=== PATIENT | female | born 1955 | race Caucasian/White ===

== ENCOUNTER 2016-03-29 10:57 | Day surgery (SDC) | payer MEDICARE ==
[~2016-03-29 10:57] MED LIST: Buffered Lidocaine 1% SYR 3ML* 3 ML/SYR SYRINGE INTRADERM ONE; DiMENhydriNATE IV* 50 MG/ML VIAL IV PUSH ONE; Scopolamine 1.5 mg* PATCH TRANSDERM ONE; Sodium Citrate/Citric Acid* 15 ML UDC PO ONE
[2016-03-29] MEDS ORDERED: Buffered Lidocaine 1% SYR 3ML* 3 ML/SYR SYRINGE ONE (11:19)
[2016-03-29] MEDS ORDERED: Sodium Citrate/Citric Acid* 15 ML UDC ONE (11:19)
[2016-03-29] MEDS ORDERED: Scopolamine 1.5 mg* PATCH ONE (11:19)
[2016-03-29] MEDS ORDERED: Oxymetazoline 0.05% NASAL SPR* 15 ML BTL ONE ×3 (12:11→13:58)
[2016-03-29] MEDS ORDERED: DiMENhydriNATE IV* 50 MG/ML VIAL ONE ×2 (12:11→15:34)
[2016-03-29] MEDS ORDERED: Lidocaine 4% TOPICAL* 50 ML TOP.SOLN ONE (12:11)
[2016-03-29] MEDS ORDERED: Bacitracin OINTMENT* 0.5% 0.5 oz TUBE ONE (12:11)
[2016-03-29] MEDS ORDERED: Lidocain 1% EPI 1:100,000 * 30 ML MDV ONE (12:11)
[2016-03-29] MEDS ORDERED: fentaNYL* 50 MCG/ML 2 ML VIAL (100 MCG VIAL) ONE ×2 (13:08→15:09)
[2016-03-29] MEDS ORDERED: Dexamethasone IV* 4 MG/ML 1 ML (4 MG) ONE (13:09)
[2016-03-29] MEDS ORDERED: Lidocaine 2% PF * 5 ML VIAL ONE (13:09)
[2016-03-29] MEDS ORDERED: Propofol* 10 MG/ML 20 ML BTL IV PUSH ONE (13:09)
[2016-03-29] MEDS ORDERED: HYDROcodone/ACETAMIN 5-325 MG* 1 TAB PO PRN (13:35)
[2016-03-29] MEDS ORDERED: DiMENhydriNATE IV* 50 MG/ML VIAL IV PUSH PRN (13:35)
[2016-03-29] MEDS ORDERED: Ondansetron INJ* 2 MG/ML VIAL ONE (14:23)
[2016-03-29] MEDS: fentaNYL* 50 MCG/ML 2 ML VIAL (100 MCG VIAL) IV PRN ×2 (15:12→15:23)
[2016-03-29] MEDS ORDERED: oxyCODONE ORAL.SOLN* 5 MG/5 ML UDC ONE (15:35)
[2016-03-29 16:58] VITALS: BP 136/69
--- NOTE | 2016-03-30 04:22 | OP ---
DATE OF OPERATION: 03/29/16 - [facility] DATE OF : 59 SURGEON: Dave Bernal MD SENIOR OPERATIONS MANAGER: None. ANESTHESIOLOGIST: Marky Galdamez MD ANESTHESIA: General. PRE-OP DIAGNOSIS: Chronic maxillary sinusitis on the left. POST-OP DIAGNOSIS: Chronic maxillary sinusitis on the left. OPERATIVE PROCEDURE: Left maxillary antrostomy. INDICATION: This is a 60-year-old woman who has had chronic left maxillary sinusitis for several months. The patient's infection has been refractory to treatment with oral antibiotics. The decision was made following confirmation on CT scan to take the patient to operating room for left maxillary antrostomy. EBL: Approximately 50 cc. SPECIMEN: Left sinus contents and culture. DESCRIPTION OF PROCEDURE: On 03/29/16, the patient was brought to the operating room, general anesthesia was induced and an LMA was placed. The patient was draped and a time-out was performed. She had been given Afrin nasal spray in the preoperative holding area. Additional pledgets soaked in Afrin and 4% lidocaine were packed into the left nasal cavity. 1% lidocaine with epinephrine was infiltrated into the left middle turbinate, left lateral nasal wall, left side of the septum and left inferior turbinate. There was a tremendous amount of mucosal inflammation and edema with really only the inferior portion of the middle turbinate visible. Additional time was allowed to for vasoconstriction, the procedure was begun. The middle turbinate was medialized. The inferior portion of the uncinate process was resected with a combination of back biter and microdebrider. The maxillary antrum was entered and copious purulent secretions were encountered. Cultures were obtained. The microdebrider as well as a back biter and straight through cutter were used to enlarge the maxillary antrostomy. The maxillary sinus was then copiously irrigated with saline. A Saad Merocel pack was placed into the middle meatus to prevent lateralization of the middle turbinate and to assist with hemostasis. A drip pattern was then applied. The patient was returned to care of the anesthesiologist, extubated and delivered to the PACU in stable condition. [id number]/CPS #: [id number] MTDD
== END 2016-03-29 17:32 | disposition home or self-care (01) ==
LOC: OR 10:57
PROVIDERS: ATTEND Otolaryngology
DX: J32.0 Chronic maxillary sinusitis (principal)
CPT/HCPCS: 36415; 86803; 87070; 87073; 87076; 87077; 87185; 87186; 87205; 88305; A9270-GY; J1100; J1240; J2405; J2704; J3010

== ENCOUNTER 2016-05-17 16:56 | Emergency (ER) | payer MEDICARE ==
--- NOTE | 2016-05-17 19:11 | RAD ---
Indication: Right ankle swelling. 3 views of the right ankle demonstrates no fracture. Soft tissue swelling is noted laterally. Ankle mortise is intact. IMPRESSION: Soft tissue swelling laterally without evidence of fracture.
[2016-05-17 19:23] VITALS: BP 128/81
[2016-05-17] MEDS ORDERED: Ibuprofen TAB* 600 MG PO ONE (19:25)
--- NOTE | 2016-05-17 19:29 | UC ---
Lower Extremity/Ankle HPI - HPI Summary HPI Summary: Patient tripped over a rug, landing on the outside of her ankle. she can bear weigh, although painful. bruising and swelling noted. - History of Current Complaint Chief Complaint: UCLowerExtremity Stated Complaint: RT ANKLE INJURY Time Seen by Provider: 05/17/16 18:42 Hx Obtained From: Patient Hx Last Menstrual Period: n/a ?: No Onset/Duration: Sudden Onset, Lasting Days Severity Initially: Moderate Severity Currently: Moderate Aggravating Factor(s): Standing, Ambulation Alleviating Factor(s): Ice Able to Bear Weight: Yes - Allergies/Home Medications Allergies/Adverse Reactions: Allergies Allergy/AdvReac Type Severity Reaction Status Date / Time Cefuroxime [From Ceftin] Allergy Itching Verified 05/17/16 19:05 Codeine Allergy Itching Verified 05/17/16 19:05 Sulfa Drugs Allergy SEVERE Verified 05/17/16 19:05 HIVE ALL OVER BODY Sulfamethoxazole Allergy SEVERE Verified 05/17/16 19:05 w/Trimethoprim HIVES ALL [From Bactrim] OVER BODY ENVIRONMENTAL/SEASONAL Allergy CONGESTION, Uncoded 05/17/16 19:05 HAYFEVER RUNNY NOSE NICOTINE PATCH Allergy RED ITCHY Uncoded 05/17/16 19:05 SITE YEAST/VINEGAR Allergy Bilateral Uncoded 05/17/16 19:05 ankle swelling/face, hand swelling, PMH/Surg Hx/FS Hx/Imm Hx Previously Healthy: Yes Endocrine History Of: Denies: Diabetes Cardiovascular History Of: Reports: Hypertension - CONTROL WITH MED Denies: Pacemaker/ICD Respiratory History Of: Reports: Asthma - HISTORY OF-NO PROBLEMS NOW, Bronchitis - HISTORY OF GI/ History Of: Denies: Renal Disease Psychological History Of: Reports: Anxiety, Depression - CONTROL WITH MEDS - Surgical History Surgical History: Yes Surgery Procedure, Year, and Place: 1962 TONSILLECTOMY. 1998 LEFT THUMB SURGERY , [place]. 2006 C5-C6 LAMINECTOMY AND FUSION, [facility]. 2006 SPLEENECTOMY, [facility] 2006 INTUBATION FROM LEFT LUNG COLLAPSE, [facility]. 2010 LEFT FOOT SPLIT BONE, [facility]. 1995 BILATERAL TUBAL LIGATION, [facility]. 2012 EXCISION OF BCC BILATERAL SIDES OF NOSE, [place]. 2012 RECONSTRUCTION MOHS SURGICAL DEFECT NOSE WITH LOCAL FLAPS, [facility] [place]. 2012 - Family History Known Family History: Positive: Respiratory Disease - Social History Alcohol Use: Rare Substance Use Type: None Smoking Status (MU): Former Smoker Type: Cigarettes Amount Used/How Often: 2 PPD FOR ABOUT 35 YEARS Length of Time of Smoking/Using Tobacco: 35 YEARS Have You Smoked in the Last Year: No When Did the Patient Quit Smoking/Using Tobacco: 2008 Review of Systems Constitutional: Negative Skin: Bruising Eyes: Negative ENT: Negative Respiratory: Negative Cardiovascular: Negative Gastrointestinal: Negative Genitourinary: Negative Motor: Negative Neurovascular: Negative Musculoskeletal: Arthralgia, Decreased ROM, Edema, Myalgia Neurological: Negative Psychological: Negative All Other Systems Reviewed And Are Negative: Yes Physical Exam Triage Information Reviewed: Yes Appearance: Well-Appearing, Well-Nourished, Pain Distress Vital Signs: Initial Vital Signs Temp 99.6 F 05/17/16 18:49 Pulse 108 05/17/16 18:49 Resp 14 05/17/16 18:49 BP 128/81 05/17/16 18:49 Pulse Ox 97 05/17/16 18:49 Vital Signs Reviewed: Yes Eye Exam: Normal Eyes: Positive: Conjunctiva Clear ENT Exam: Normal ENT: Positive: Normal ENT inspection, Hearing grossly normal, Pharynx normal, TMs normal Dental Exam: Normal Neck exam: Normal Neck: Positive: Supple, Nontender, No Lymphadenopathy Respiratory Exam: Normal Respiratory: Positive: Chest non-tender, Lungs clear, Normal breath sounds Cardiovascular Exam: Normal Cardiovascular: Positive: RRR, No Murmur, Pulses Normal Abdominal Exam: Normal Abdomen Description: Positive: Nontender, No Organomegaly, Soft Bowel Sounds: Positive: Present Musculoskeletal: Positive: Strength Limited @, ROM Limited @ - in pronation and dorsi flexion, Edema @ - lateral aspect and doraum of foot Neurological Exam: Normal Psychological Exam: Normal Skin Exam: Normal Lower Extremity Course/Dx - Course Course Of Treatment: hx obtained, exam performed, meds reviewed, xray obtained no evidence of fracture, ice applied, iburprofen given for pain. gel spint applied. - Differential Dx/Diagnosis Differential Diagnosis/HQI/PQRI: Cellulitis, Contusion, Dislocation, Fracture ( Closed), Sprain, Strain Provider Diagnoses: right ankle sprain. ecchymosis Discharge - Discharge Plan Condition: Stable Disposition: HOME Patient Education Materials: Ankle Sprain (ED) Additional Instructions: rest ice compress and elevate. continue to ice for the next two days. keep the verena wrap on to reduce swelling and elevate at rest. weight bear and do activity as tolerated.
== END 2016-05-17 20:06 | disposition home or self-care (01) ==
LOC: UCCORT 16:56
DX: S93.401A Sprain of unspecified ligament of right ankle, initial encounter (principal); S90.01XA Contusion of right ankle, initial encounter; W22.8XXA Striking against or struck by other objects, initial encounter; Y93.9 Activity, unspecified; Y92.9 Unspecified place or not applicable; Z88.1 Allergy status to other antibiotic agents; Z88.5 Allergy status to narcotic agent; Z88.2 Allergy status to sulfonamides; I10 Essential (primary) hypertension; Z87.891 Personal history of nicotine dependence
CPT/HCPCS: 99213; A9270-GY; G0463

== ENCOUNTER 2022-02-04 13:33 | Inpatient (IN) ==
[2022-02-04] MEDS ORDERED: Naloxone 0.4 mg VIAL 0.4 mg/ml 1 ml VIAL ONE (13:37)
[2022-02-04] MEDS ORDERED: Succinylcholine 200 mg VIAL 20 mg/ml 10 ml VIAL (200 mg) ONE (13:37)
[2022-02-04] MEDS ORDERED: Rocuronium 50 mg VIAL 10 mg/ml 5 ml VIAL (50 mg) ONE (13:37)
[2022-02-04] MEDS ORDERED: Succinylcholine 200 mg VIAL 20 mg/ml 10 ml VIAL (200 mg) IV ONE (13:54)
[2022-02-04] MEDS ORDERED: Etomidate 20 mg/10 ml 2 MG/ML 10 ml VIAL IV ONE (13:54)
[2022-02-04] MEDS ORDERED: Midazolam 10 mg/10 ml VIAL 1 mg/ml 10 ml VIAL (10 mg) ONE ×2 (13:58→14:05)
[2022-02-04] MEDS ORDERED: Midazolam 10 mg/10 ml VIAL 1 mg/ml 10 ml VIAL (10 mg) IV SLOW PU ONE ×2 (14:05→14:06)
[2022-02-04 14:07] LABS: ABS Lymphocytes 1.2 10^3/ul (1.0-4.8); ABS Monocytes 0.2 10^3/ul (0-0.8); ABS Neutrophils 8.1 10^3/ul (1.5-7.7); Hematocrit 45 % (35-47); Hemoglobin 14.6 g/dL (12.0-16.0); Lymphocyte % 12.8 %; Mean Corpuscular HGB Conc 32 g/dL (31-36); Mean Corpuscular Hemoglobin 30 pg (27-31); Mean Corpuscular Volume 94 fL (80-97); Mean Platelet Volume 8.4 fL (7.4-10.4); Nucleated Red Blood Cells % 0.1; Platelet Count 452 10^3/uL (150-450); Red Blood Count 4.81 10^6 /uL (3.70-4.87); Red Cell Distribution Width 14 % (10-15); White Blood Count 9.5 10^3/uL (3.5-10.8)
[2022-02-04 14:28] LABS: Urine Benzodiazepine Screen Presumptive Positive (None Detect); Urine Cannabinoids Screen Presumptive Positive (None Detect); Urine Opiates Screen None Detected (None Detect)
[2022-02-04 14:30] LABS: Urine Appearance Clear; Urine Bilirubin Negative (Negative); Urine Blood 3+ (Large) (Negative); Urine Color Yellow; Urine Glucose Negative (Negative); Urine Ketones 1+ (15mg/dL) (Negative); Urine Nitrite Negative (Negative); Urine Protein Negative (Negative); Urine Specific Gravity 1.025 (1.005-1.030); Urine Urobilinogen 0.2 (Negative) (Negative)
[2022-02-04 14:41] LABS: ALT 18 U/L (7-52); Acetaminophen < 15 mcg/mL; Albumin 4.6 g/dL (3.2-5.2); Albumin/Globulin Ratio 1.8 (1-3); Alcohol, S 261 mg/dL (<13); Alkaline Phosphatase 57 U/L (35-149); Blood Urea Nitrogen 14 mg/dL (6-24); CO2 Carbon Dioxide 20 mmol/L (22-32); Calcium 8.8 mg/dL (8.6-10.3); Chloride 106 mmol/L (101-111); Globulin 2.5 g/dL (2-4); Glucose 103 mg/dL (70-100); Salicylate < 2.50 mg/dL (<30); Sodium 140 mmol/L (135-145); Total Protein 7.1 g/dL (6.4-8.9); eGFR CKD-EPI 101.4 (>60)
[2022-02-04 14:42] LABS: Anion Gap 14 mmol/L (2-11)
[2022-02-04 14:50] LABS: Urine Bacteria Absent (Absent); Urine Red Blood Cell Trace(0-2/hpf) (Absent); Urine Squamous Epithelial Cell Present (Absent); Urine White Blood Cell Trace(0-5/hpf) (Absent)
[2022-02-04 14:52] LABS: TSH Ultra Thyroid Stim Horm 0.39 mcIU/mL (0.34-5.60)
[2022-02-04 14:53] LABS: High Sens Troponin Baseline 3 pg/mL (<15)
[2022-02-04] MEDS ORDERED: Thiamine 100 MG/ML 2 ml VIAL 500 MG in NS 0.9% 250 ml 250 ML IV ONE (15:08)
[2022-02-04 15:18] LABS: Creatine Kinase 2410 U/L (10-223)
[2022-02-04] MEDS ORDERED: NS 0.9% 1000 ml BAG 1,000 ML IV ONE (15:30)
[2022-02-04 15:40] LABS: Venous Bicarbonate HCO3 22.6 mmol/L (24-28)
[2022-02-04] MEDS ORDERED: Lorazepam PYXIS KEY PRN (15:56)
[2022-02-04] MEDS ORDERED: LORazepam 2 mg VIAL 1 ml IV PUSH SCH (16:00)
[2022-02-04 16:11] LABS: High Sensitivity Troponin 1 Hr 3 pg/mL (<15)
[2022-02-04 16:31] LABS: Potassium Redraw 4.1 mmol/L (3.5-5.0)
[2022-02-04 16:37] LABS: Osmolality Serum 362 mOsm/kg (275-295)
[2022-02-04] MEDS: Pantoprazole VIAL 40 MG VIAL IV SCH (17:46)
[2022-02-04] MEDS ORDERED: Lactated Ringers 1000 ml BAG 1,000 ML IV ONE ×3 (18:17→19:16)
[2022-02-04 18:34] LABS: Activated Partial Thrombo Time 32.2 seconds (26.0-38.0); INR 0.93 (0.89-1.11)
[2022-02-04] MEDS ORDERED: Propofol 10 mg/ml 100 ML BTL 100 ML ONE (18:48)
[2022-02-04] MEDS: Propofol 10 mg/ml 100 ML BTL 100 ML IV SCH (18:55)
[2022-02-04] MEDS ORDERED: D5LR 1000 ml BAG 1,000 ML IV SCH (19:00)
[2022-02-04] MEDS: Chlorhexidine MOUTHWASH 0.12% 15 ML UDC TOPICAL SCH ×2 (19:23→21:18)
[2022-02-04] MEDS: Enoxaparin 40 MG/0.4 ML SYR SUBCUT SCH (21:18)
[2022-02-04] MEDS: Acetaminophen IV 1 GM/100ML 1,000 MG/100 ML BAG IV PRN (22:10)
[2022-02-04] MEDS ORDERED: fentaNYL 100 mcg/2 ml 50 MCG/ML VIAL IV SLOW PU ONE (22:22)
[2022-02-04] MEDS ORDERED: Piperacillin/Tazobac ADVAN 3.375 GM in NS 0.9% 100 ml BAG 100 ML IV ONE (22:23)
[2022-02-04] MEDS ORDERED: fentaNYL 100 mcg/2 ml 50 MCG/ML VIAL ONE (22:23)
[2022-02-04] MEDS ORDERED: Zosyn per Pharmacy NOTE FOLLOW UP SCH (23:00)
[2022-02-05] MEDS ORDERED: Lactated Ringers 1000 ml BAG 1,000 ML IV ONE ×3 (00:42→12:59)
[2022-02-05] MEDS: Chlorhexidine MOUTHWASH 0.12% 15 ML UDC TOPICAL SCH ×6 (01:35→22:13)
[2022-02-05] MEDS: Propofol 10 mg/ml 100 ML BTL 100 ML IV SCH ×3 (02:45→19:35)
[2022-02-05] MEDS ORDERED: ZOSYN 3.375 GM Q8H per EXTENDED INFUSION IV SCH (03:30)
[2022-02-05 05:43] LABS: Hematocrit 38 % (35-47); Hemoglobin 12.5 g/dL (12.0-16.0); Mean Corpuscular HGB Conc 33 g/dL (31-36); Mean Corpuscular Hemoglobin 30 pg (27-31); Mean Corpuscular Volume 92 fL (80-97); Mean Platelet Volume 8.2 fL (7.4-10.4); Platelet Count 341 10^3/uL (150-450); Red Blood Count 4.16 10^6 /uL (3.70-4.87); Red Cell Distribution Width 14 % (10-15); White Blood Count 9.7 10^3/uL (3.5-10.8)
[2022-02-05 06:29] LABS: Albumin 3.1 g/dL (3.2-5.2); Albumin/Globulin Ratio 1.8 (1-3); Calcium 7.8 mg/dL (8.6-10.3); Globulin 1.7 g/dL (2-4); Magnesium 1.6 mg/dL (1.9-2.7); Potassium 3.8 mmol/L (3.5-5.0); Total Bilirubin 0.5 mg/dL (0.2-1.0); Total Protein 4.8 g/dL (6.4-8.9); eGFR CKD-EPI 106.2 (>60)
[2022-02-05] MEDS ORDERED: Magnesium Sulfate 2 gm BAG 2 GM/50 ML BAG IVPB ONE (06:39)
[2022-02-05] MEDS: Lactated Ringers 1000 ml BAG 1,000 ML IV SCH ×4 (06:41→21:00)
[2022-02-05] MEDS ORDERED: fentaNYL 100 mcg/2 ml 50 MCG/ML VIAL IV SLOW PU ONE (09:10)
[2022-02-05] MEDS ORDERED: Dexmedetomidine 1,000 MCG in NS 0.9% 250 ml 240 ML IV SCH (10:00)
[2022-02-05] MEDS: Thiamine 100 MG/ML 2 ml VIAL 500 MG in NS 0.9% 250 ml 250 ML IV SCH ×2 (10:54→18:18)
[2022-02-05] MEDS ORDERED: Norepinephrine 16MCG/ML BAG NS 4,000 MCG/250 ML BAG IV SCH ×3 (13:00→14:32)
[2022-02-05] MEDS: Pantoprazole VIAL 40 MG VIAL IV SCH (17:20)
[2022-02-05] MEDS: Enoxaparin 40 MG/0.4 ML SYR SUBCUT SCH (22:13)
[2022-02-06] MEDS: Chlorhexidine MOUTHWASH 0.12% 15 ML UDC TOPICAL SCH ×3 (01:36→07:49)
[2022-02-06] MEDS: Lactated Ringers 1000 ml BAG 1,000 ML IV SCH ×3 (02:00→13:01)
[2022-02-06] MEDS: Thiamine 100 MG/ML 2 ml VIAL 500 MG in NS 0.9% 250 ml 250 ML IV SCH ×3 (02:42→17:21)
[2022-02-06] MEDS: Propofol 10 mg/ml 100 ML BTL 100 ML IV SCH (04:11)
[2022-02-06 04:38] LABS: ABS Eosinophils 0.1 10^3/ul (0-0.6); ABS Lymphocytes 2.5 10^3/ul (1.0-4.8); ABS Monocytes 0.7 10^3/ul (0-0.8); ABS Neutrophils 6.3 10^3/ul (1.5-7.7); Eosinophil % 0.9 %; Hematocrit 33 % (35-47); Hemoglobin 10.9 g/dL (12.0-16.0); Lymphocyte % 26.1 %; Mean Corpuscular HGB Conc 33 g/dL (31-36); Mean Corpuscular Hemoglobin 31 pg (27-31); Mean Corpuscular Volume 92 fL (80-97); Mean Platelet Volume 8.7 fL (7.4-10.4); Platelet Count 295 10^3/uL (150-450); Red Blood Count 3.52 10^6 /uL (3.70-4.87); Red Cell Distribution Width 14 % (10-15); White Blood Count 9.6 10^3/uL (3.5-10.8)
[2022-02-06 05:19] LABS: Calcium 7.7 mg/dL (8.6-10.3); Magnesium 1.7 mg/dL (1.9-2.7); Potassium 3.8 mmol/L (3.5-5.0); eGFR CKD-EPI 106.2 (>60)
[2022-02-06] MEDS ORDERED: Magnesium Sulfate IV 3 GM in NS 0.9% 100 ml BAG 100 ML IVPB ONE (06:09)
[2022-02-06] MEDS: Acetaminophen IV 1 GM/100ML 1,000 MG/100 ML BAG IV PRN ×2 (07:48→20:24)
[2022-02-06 10:27] LABS: PCO2 Arterial 26 mmHg (35-45); PO2 Arterial 109 mmHg (80-100)
[2022-02-06] MEDS ORDERED: Lactated Ringers 1000 ml BAG 1,000 ML IV SCH (13:00)
[2022-02-06] MEDS ORDERED: LORazepam 2 mg VIAL 1 ml IV PUSH ONE (20:45)
[2022-02-06] MEDS: Enoxaparin 40 MG/0.4 ML SYR SUBCUT SCH (23:23)
[2022-02-07] MEDS: Thiamine 100 MG/ML 2 ml VIAL 500 MG in NS 0.9% 250 ml 250 ML IV SCH ×2 (01:58→10:33)
[2022-02-07] MEDS ORDERED: Lorazepam PYXIS KEY PRN ×2 (04:45→04:57)
[2022-02-07] MEDS ORDERED: LORazepam 2 mg VIAL 1 ml IV PUSH ONE (04:57)
[2022-02-07] MEDS: Acetaminophen IV 1 GM/100ML 1,000 MG/100 ML BAG IV PRN (05:38)
[2022-02-07 06:04] LABS: ABS Basophils 0.1 10^3/ul (0-0.2); ABS Eosinophils 0.2 10^3/ul (0-0.6); ABS Lymphocytes 4.2 10^3/ul (1.0-4.8); ABS Monocytes 0.7 10^3/ul (0-0.8); ABS Neutrophils 5.3 10^3/ul (1.5-7.7); Eosinophil % 1.7 %; Hematocrit 34 % (35-47); Hemoglobin 11.6 g/dL (12.0-16.0); Lymphocyte % 40.5 %; Mean Corpuscular HGB Conc 34 g/dL (31-36); Mean Corpuscular Hemoglobin 31 pg (27-31); Mean Corpuscular Volume 91 fL (80-97); Mean Platelet Volume 8.9 fL (7.4-10.4); Nucleated Red Blood Cells % 0.1; Platelet Count 313 10^3/uL (150-450); Red Blood Count 3.76 10^6 /uL (3.70-4.87); Red Cell Distribution Width 13 % (10-15); White Blood Count 10.4 10^3/uL (3.5-10.8)
[2022-02-07 06:50] LABS: Albumin 3.4 g/dL (3.2-5.2); Albumin/Globulin Ratio 1.9 (1-3); Globulin 1.8 g/dL (2-4); Magnesium 1.5 mg/dL (1.9-2.7); Potassium 3.1 mmol/L (3.5-5.0); Total Bilirubin 1.2 mg/dL (0.2-1.0); Total Protein 5.2 g/dL (6.4-8.9); eGFR CKD-EPI 105.7 (>60)
[2022-02-07] MEDS ORDERED: Potassium Chlor 20 meq TAB.ER PO ONE (08:34)
[2022-02-07] MEDS ORDERED: Magnesium Sulfate IV 3 GM in NS 0.9% 100 ml BAG 100 ML IVPB ONE (08:34)
[2022-02-07] MEDS: KCL 20 MEQ/100 ML IVPREMIX 20 MEQ/100 ML BAG IV SCH ×2 (10:26→13:27)
[2022-02-07] MEDS: Lidocaine PATCH 5% PATCH TRANSDERM SCH (18:07)
[2022-02-07] MEDS: Enoxaparin 40 MG/0.4 ML SYR SUBCUT SCH (21:40)
[2022-02-07] MEDS ORDERED: Ketorolac 10 mg TAB (NF) PO PRN (22:28)
[2022-02-07] MEDS: Magic MouthWash1-BEN/MAAL/LIDO 180 ML BTL SWISH SPIT SCH (23:45)
[2022-02-08 07:18] LABS: Calcium 8.2 mg/dL (8.6-10.3); Potassium 3.6 mmol/L (3.5-5.0); eGFR CKD-EPI 107.9 (>60)
[2022-02-08 08:16] LABS: Acetone Level Not Detected; Ethanol Not Detected; Isopropanol Not Detected
[2022-02-08] MEDS: Lidocaine PATCH 5% PATCH TRANSDERM SCH (09:26)
[2022-02-08] MEDS: Acetaminophen IV 1 GM/100ML 1,000 MG/100 ML BAG IV PRN (09:26)
[2022-02-08] MEDS: Magic MouthWash1-BEN/MAAL/LIDO 180 ML BTL SWISH SPIT SCH (09:26)
[2022-02-08 11:21] LABS: Albumin 3.6 g/dL (3.2-5.2); Albumin/Globulin Ratio 1.9 (1-3); Direct Bilirubin 0.1 mg/dL (0.03-0.18); Globulin 1.9 g/dL (2-4); Indirect Bilirubin 0.6 mg/dL (0.3-1.0); Total Bilirubin 0.7 mg/dL (0.2-1.0); Total Protein 5.5 g/dL (6.4-8.9)
[2022-02-08 11:29] VITALS: BP 138/83
[2022-02-08] MEDS ORDERED: Al Hydrox/Mg Hydrox/Simet LIQ 30 ML UDC PO PRN (12:52)
== END 2022-02-08 13:45 | DRG 917 ==
LOC: ED 13:33 → SUATTDRO 14:38 → EDHOLD 14:38 → ICU 18:22 → MED 02-07 04:43
PROVIDERS: ADMIT Internal Medicine Critical Care Medicine; ATTEND Internal Medicine

== ENCOUNTER 2022-02-08 10:47 | Inpatient (IN) ==
[2022-02-08] MEDS ORDERED: Al Hydrox/Mg Hydrox/Simet LIQ 30 ML UDC PO PRN (18:02)
[2022-02-09] MEDS: Vitamin THERAPEUTIC TAB PO SCH (09:44)
[2022-02-09] MEDS: Lidocaine PATCH 5% PATCH TRANSDERM SCH (09:45)
[2022-02-09] MEDS: Magic MouthWash1-BEN/MAAL/LIDO 180 ML BTL SWISH SPIT PRN (19:20)
[2022-02-10] MEDS: Magic MouthWash1-BEN/MAAL/LIDO 180 ML BTL SWISH SPIT PRN ×3 (01:36→20:42)
[2022-02-10 08:50] LABS: HDL Cholesterol 42.3 mg/dL
[2022-02-10] MEDS: Vitamin THERAPEUTIC TAB PO SCH (10:58)
[2022-02-10] MEDS: Lidocaine PATCH 5% PATCH TRANSDERM SCH (11:00)
[2022-02-11] MEDS: Magic MouthWash1-BEN/MAAL/LIDO 180 ML BTL SWISH SPIT PRN ×4 (00:50→20:26)
[2022-02-11] MEDS: Vitamin THERAPEUTIC TAB PO SCH (08:04)
[2022-02-11] MEDS: Lidocaine PATCH 5% PATCH TRANSDERM SCH (09:45)
[2022-02-12] MEDS: Vitamin THERAPEUTIC TAB PO SCH (07:37)
[2022-02-12] MEDS: Lidocaine PATCH 5% PATCH TRANSDERM SCH (07:38)
[2022-02-12] MEDS: Magic MouthWash1-BEN/MAAL/LIDO 180 ML BTL SWISH SPIT PRN ×2 (12:53→19:20)
[2022-02-13] MEDS: Vitamin THERAPEUTIC TAB PO SCH (08:44)
[2022-02-13] MEDS: Lidocaine PATCH 5% PATCH TRANSDERM SCH (10:14)
[2022-02-13] MEDS: Magic MouthWash1-BEN/MAAL/LIDO 180 ML BTL SWISH SPIT PRN ×2 (10:15→21:10)
[2022-02-14] MEDS: Magic MouthWash1-BEN/MAAL/LIDO 180 ML BTL SWISH SPIT PRN ×2 (06:22→09:02)
[2022-02-14] MEDS: Lidocaine PATCH 5% PATCH TRANSDERM SCH (08:07)
[2022-02-14] MEDS: Vitamin THERAPEUTIC TAB PO SCH (08:07)
[2022-02-14 09:30] VITALS: BP 131/76
== END 2022-02-14 13:55 | disposition home or self-care (01) | DRG 885 ==
LOC: BSU 10:47
PROVIDERS: ADMIT Psychiatry & Neurology Psychiatry; ATTEND Psychiatry & Neurology Psychiatry